=== PATIENT | female | born 2000 | race Two or more races ===

== ENCOUNTER 2023-06-07 00:26 | Emergency (ER) | payer MEDICAID, OTHER ==
[~2023-06-07] VITALS: Ht 162.6 cm; Wt 65.0 kg
[2023-06-07 01:29] LABS: Eosinophils # (auto) 0.1 10 ^3/uL (0-0.8); Lymphocytes # (auto) 1.8 10 ^3/uL (0.4-5.4); Monocytes # (auto) 0.9 10 ^3/uL (0-1.3); White Blood Cell 9.9 10^3/uL (4.4-10.8)
[2023-06-07 01:30] LABS: Basophils # (auto) 0.1 10 ^3/uL (0-0.2); Basophils % (auto) 0.5 % (0.0-2.0); Eosinophils % (auto) 1.3 % (0.0-7.0); Hematocrit 36.7 % (36.0-46.0); Hemoglobin 11.9 g/dL (12.2-16.2); Lymphocytes % (auto) 18.1 % (10.0-50.0); Mean Corpuscular Hemoglobin 26.6 pg (28.0-32.0); Mean Corpuscular Hgb Conc. 32.3 g/dL (32.0-36.0); Mean Corpuscular Volume 82.3 fL (80.0-100.0); Monocytes % (auto) 8.9 % (0.0-12.0); Neutrophils # (auto) 7.1 10 ^3/uL (1.6-8.6); Neutrophils % (auto) 71.2 % (37.0-80.0); Red Blood Cells 4.46 10^6/uL (4.0-5.20); Red Cell Distribution Width 13.2 % (11.8-14.3)
[2023-06-07 01:40] LABS: Chloride 110 mmol/L (98-107); Potassium 3.4 mmol/L (3.5-5.1); Sodium 138 mmol/L (136-145)
[2023-06-07 01:41] LABS: Anion Gap 6 (5-15); Carbon Dioxide 22 mmol/L (20-30)
[2023-06-07 01:42] LABS: Calcium 8.7 mg/dL (8.7-10.4)
[2023-06-07 01:46] LABS: Glucose 94 mg/dL (74-106)
[2023-06-07 01:48] LABS: BUN/Creatinine Ratio 9.6 (10.0-20.0); Blood Urea Nitrogen < 5 mg/dL (9-23)
[2023-06-07 01:56] LABS: COVID19 ANTIGEN SOFIA FIA NEGATIVE (NEGATIVE); Rapid Influenza A Negative (Negative); Rapid Influenza B Negative (Negative)
[2023-06-07 03:46] LABS: Urine Bacteria MANY /hpf (None Seen); Urine Blood Negative /uL (Negative); Urine Clarity HAZY (Clear); Urine Color Yellow (Yellow); Urine Mucus FEW (None Seen); Urine Protein, UAD 1+ (Negative); Urine Specific Gravity 1.032 (1.001-1.035); Urine WBC 6 /hpf (0 - 5)
[2023-06-07] MEDS ORDERED: ACET500T58 PO (03:55)
[2023-06-07] MEDS ORDERED: CEPH500C PO (03:55)
[2023-06-07] MEDS: POTASSIUM CHL 20 Meq TABLET PO ONE (03:57)
[2023-06-07] MEDS: ACETAMINOPHEN 325 MG TAB PO ONE (03:58)
[2023-06-07] MEDS: cefTRIAXone SOD 1,000 MG VL IM ONE (03:59)
[2023-06-07 05:07] VITALS: BP 110/54; PULSE 95; RESP 18; TEMP 98.7; O2SAT 99
[2023-06-08 08:06] LABS: RPR Non Reactive (Non Reactive)
== END 2023-06-07 05:51 | disposition home or self-care (01) ==
LOC: ER 00:26
DX: O99.511 Diseases of the respiratory system complicating pregnancy, first trimester (principal); R10.2 Pelvic and perineal pain; J06.9 Acute upper respiratory infection, unspecified; O20.8 Other hemorrhage in early pregnancy; O23.41 Unspecified infection of urinary tract in pregnancy, first trimester; N39.0 Urinary tract infection, site not specified; Z79.899 Other long term (current) drug therapy; Z3A.01 Less than 8 weeks gestation of pregnancy; Z20.822 Contact with and (suspected) exposure to COVID-19
CPT/HCPCS: 36415; 76801; 76817; 80048; 81001; 84702; 85025; 86592; 87426; 87804; 96372; 99285; J0696